=== PATIENT | female | born 1940 | race Caucasian/White ===

== ENCOUNTER 2016-09-15 01:30 | Emergency (ER) | payer OTHER, MEDICARE ==
--- NOTE | 2016-09-15 01:59 | RADIOLOGY REPORT (SQ) ---
EXAM DESCRIPTION: CHEST SINGLE VIEW COMPLETED DATE/TIME: 09/15/2016 1:42 am REASON FOR STUDY: STROKE LIKE SX COMPARISON: None. EXAM PARAMETERS: NUMBER OF VIEWS: One view. TECHNIQUE: Single frontal radiographic view of the chest acquired. RADIATION DOSE: NA LIMITATIONS: None. FINDINGS: LUNGS AND PLEURA: No opacities, masses or pneumothorax. No pleural effusion. MEDIASTINUM AND HILAR STRUCTURES: No masses. Contour normal. HEART AND VASCULAR STRUCTURES: Heart normal in size. Atherosclerosis. BONES: No acute findings. HARDWARE: Right upper abdominal clips. OTHER: No other significant finding. IMPRESSION: NO ACUTE RADIOGRAPHIC FINDING IN THE CHEST. TECHNICAL DOCUMENTATION: JOB ID: [id number]
[2016-09-15 02:05] LABS: PARTIAL THROMBOPLASTIN TIME 30.2 SEC (23.5-35.8); PROTHROMBIN TIME 14.2 SEC (11.4-15.4)
[2016-09-15 02:06] LABS: ABSOLUTE BASOPHILS # (AUTO) 0.1 10^3/uL (0.0-0.2); ABSOLUTE EOSINOPHILS # (AUTO) 0.1 10^3/uL (0.0-0.6); ABSOLUTE LYMPHOCYTES (AUTO) 1.2 10^3/uL (0.5-4.7); ABSOLUTE MONOCYTES (AUTO) 0.3 10^3/uL (0.1-1.4); ABSOLUTE NEUT (AUTO) 4.6 10^3/uL (1.7-8.2); BASOPHILS % (AUTO) 1.1 % (0-2); EOSINOPHILS % (AUTO) 2.3 % (0-6); HEMOGLOBIN 10.4 g/dL (12.0-15.5); HGB HCT DIFFERENCE 1.2; LYMPHOCYTES % (AUTO) 18.7 % (13-45); MEAN CORPUSCULAR HEMOGLOBIN 37.6 pg (27.0-33.4); MEAN CORPUSCULAR HGB CONC 34.6 g/dL (32.0-36.0); MEAN CORPUSCULAR VOLUME 109 fl (80-97); MONOCYTES % (AUTO) 5.5 % (3-13); RED BLOOD COUNT 2.76 10^6/uL (3.72-5.28); RED CELL DISTRIBUTION WIDTH 17.5 % (11.5-14.0); SEGMENTED NEUTROPHILS % (AUTO) 72.4 % (42-78); WHITE BLOOD COUNT 6.4 10^3/uL (4.0-10.5)
--- NOTE | 2016-09-15 02:09 | RADIOLOGY REPORT (SQ) ---
EXAM DESCRIPTION: CT HEAD WITHOUT COMPLETED DATE/TIME: 09/15/2016 1:43 am REASON FOR STUDY: UNILATERAL WEAKNESS COMPARISON: None. TECHNIQUE: Axial images acquired through the brain without intravenous contrast. Images reviewed wi th bone, brain and subdural windows. Images stored on PACS. All CT scanners at this facility use dose modulation, iterative reconstruction, and/or weight based d osing when appropriate to reduce radiation dose to as low as reasonably achievable (ALARA). [facility]: Dose Right [facility]: CareDose [facility]: Dose Right [facility]: Teradose 4D [facility]: [employer] RADIATION DOSE: 1163 LIMITATIONS: None. FINDINGS: VENTRICLES: Normal size and contour. CEREBRUM: Mild -moderate diminished white matter attenuation in bihemispheric white matter, especiall y of the right anterior and mid parietal white matter and focal encephalomalacia of the left precentr al gyrus, image 24, series 2. CEREBELLUM: No masses. No hemorrhage. No alteration of density. No evidence for acute infarction. EXTRAAXIAL SPACES: No fluid collections. No masses. ORBITS AND GLOBE: No intra- or extraconal masses. Normal contour of globe without masses. CALVARIUM: No fracture. PARANASAL SINUSES: No fluid or mucosal thickening. SOFT TISSUES: No mass or hematoma. OTHER: No other significant finding. IMPRESSION: Tjvd-yr-[id number] white matter microangiopathy pattern. Focal encephalomalacia of the le ft precentral gyrus. If acute ischemia is suspected, consider CT/ MR surveillance within 48-72 hours . COMMENT: Discussed with JAIME REBOLLEDO DO at01:52 on 09/15/2016. TECHNICAL DOCUMENTATION: JOB ID: [id number] Quality ID # [id number]: Final reports with documentation of one or more dose reduction techniques (e.g., Au tomated exposure control, adjustment of the mA and/or kV according to patient size, use of iterative reconstruction technique) 2010 [employer]- All Rights Reserved
--- NOTE | 2016-09-15 02:10 | ER Document Report ---
ED General - General Chief Complaint: S/S of Possible Stroke Stated Complaint: STROKE LIKE SYMPTOMS Time Seen by Provider: 09/15/16 01:37 Past Medical History - Social History Smoking Status: Current Every Day Smoker Frequency of alcohol use: None Drug Abuse: None Family History: Reviewed & Not Pertinent Physical Exam - Vital signs Vitals: Pulse Ox 85 L 09/15/16 01:34 Course - Re-evaluation Re-evalutation: 09/15/16 02:07 Patient's family is at bedside. Patient is obviously confused. She does not always answer questions appropriately. When I asked her to perform certain tasks she just says okay but then does not perform the tasks. It is therefore difficult for me to determine if there is a little bit weakness on one side versus the other. She is actively moving around in the bed and actively moving all 4 extremities on her own without any significant difficulty. She does seem to close her right fist a little bit left in her left fist which is what the family noticed earlier however again she will not follow my commands to determine if this is actually because she cannot close fingers or hand or face for another reason. Patient otherwise is actively moving her right upper extremity normally. At this time I cannot be convinced that this is a stroke or not. Patient did just go through an emotional event with the of her son. I do not know if this is contributing to what is going on now. I did talk to the family about TPA and about the risks and benefits of TPA. I informed them of the cyst to 6 behind the potential treatment with TPA given within 3 hours and also informed him of the risk of intracranial bleeding with menstruation. Currently the [id number] and other family members are in the room. They currently agree and do not want TPA; however, they also do not feel comfortable making this decision purely on their own as they want to try to get in touch with the patient's son who would be her next of kin. They are attempting to call the son so that I can speak with them. 09/15/16 02:20 I did talk to the patient's son and fhgqeclt-[id number] who are in [place]. I informed him of what is going on in my exam findings. Also informed him that I cannot tell if this is more of an emotional breakdown on actual stroke that is causing her confusion. I informed him that is hard to get a good physical exam on her being that she does not quite follow my commands appropriately. They are understanding of this. I did talk to him about TPA. I did go over this to cystic some TPA as far as six-month outcome and also in regards to risk of bleeding if the medication is given. I informed him being that is not 100% clear that the stroke that my recommendation would be to not give the medication : however, ultimately the decision as there is. They agree and do not want medication given at this time. They did ask again why we cannot get an MRI here. I informed him that we do not have MRI capability at night as we do not have MRI techs contract accountant at night. They asked me if we will be able to transfer the patient to another facility within the 3 hour window to get an MRI performed. I informed him that currently we actually have several patients in the ER already waiting transfers and there is no transport available and therefore the patient will be a welts of the window before we could even get transport here. We are already past 1.5 hours since the onset of symptoms; therefore, Even if we did have an immediate truck available the closest facility with MRI capability is an hour away and therefore the patient would probably not make it to the actual facility that had an MRI until the actual three-hour abraham and by the time MRI would be performed and resulted she would be outside the window for any type of thrombolytic therapy. They are understanding of this. I personally feel that giving thrombolytics his right decision in that the patient's symptoms are not clear-cut of that of a stroke as she does not have any obvious tremor any weakness and this seems to be very much for confusion which could just as easily represent emotional stress from loss was son as could represent a stroke as well. 09/15/16 02:25 09/15/16 03:05 On reevaluation patient's neuro exam remains the same. She is still moving all 4 extremities. She still has about the same level of confusion. Patient's initial troponin did come back elevated. Patient does have history of coronary disease but she also has renal insufficiency. Unclear if this is related to possible recent MRI. We will do a repeat troponin at 3:45 to determine if her troponin is increasing or not. Potassium is low. We will also give her some potassium. I will check a magnesium level. 09/15/16 04:31 Her repeat troponin is steady. It is not increasing. I did call her hospitalist and discussed the case with him. I spoke with Dr. Hamilton. He does not feel comfortable keeping her being that she has a left bundle branch block and we do not know if it is old or not. Family does not know if it is an old. We have no comparison being that she is out of town. He requested transfer the patient. I did speak with family who is agreeable to me trying [facility]. I am awaiting to hear back from the hospitalist at [facility]. 09/15/16 04:[address] Hugo Phillips, hospitalist at [facility], who agrees to accept the patient for transfer. At this time I will withhold giving her Lovenox being that her troponin is not increasing and has remained steady. I suspect that this is less likely related to a new cardiac infarction and being that there is a possibility the patient may have recently had a stroke I would rather not do more anticoagulation than aspirin. Neurologically the patient has remained unchanged. She still shows no signs of weakness and of any of her extremities on my exam. The right-sided weakness at the family initially visualized is not evident at this time. Still has confusion. Patient will be closely monitored until transfer. I did tell the family member of the acceptance to [facility] and that she will most likely be transferred after morning time. Family is appreciative and has no further questions at this time. 09/15/16 04:44 - Vital Signs Vital signs: Temp Pulse Resp BP Pulse Ox 71 21 H 105/63 100 09/15/16 03:00 09/15/16 03:02 09/15/16 03:02 09/15/16 03:02 - Laboratory Result Diagrams: 09/15/16 01:45 09/15/16 01:45 Laboratory results interpreted by me: 09/15/16 09/15/16 09/15/16 01:45 01:45 01:45 RBC 2.76 L Hgb 10.4 L Hct 30.0 L MCV 109 H MCH 37.6 H RDW 17.5 H Plt Count 107 L Potassium 3.0 L* Chloride 116 H Carbon Dioxide 11 L BUN 33 H Creatinine 2.53 H Est GFR ( Amer) 22 L Est GFR (Non-Af Amer) 18 L Glucose 116 H Calcium 7.6 L Magnesium CK-MB (CK-2) 6.08 H Total Protein 6.2 L 09/15/16 01:45 RBC Hgb Hct MCV MCH RDW Plt Count Potassium Chloride Carbon Dioxide BUN Creatinine Est GFR ( Amer) Est GFR (Non-Af Amer) Glucose Calcium Magnesium 1.5 L CK-MB (CK-2) Total Protein - EKG Interpretation by Me Additional EKG results interpreted by me: 09/15/16 02:06 EKG is reviewed and interpreted by me. EKG shows normal sinus rhythm with a rate of 79 bpm. Patient does have a left bundle branch block. No unexpected ST segment changes in combination with a left bundle branch block. Occasional PVC. VA interval is within normal range. QRS duration and QTc intervals are along. No old EKG available for comparison. Discharge - Discharge Clinical Impression: Elevated troponin, Hypokalemia, Hypomagnesemia Altered mental status Qualifiers: Altered mental status type: unspecified Qualified Code(s): R41.82 - Altered mental status, unspecified Condition: Stable Disposition: [facility]
[2016-09-15 02:17] LABS: ALANINE AMINOTRANSFERASE 21 U/L (9-52); ALBUMIN 3.9 g/dL (3.5-5.0); ALKALINE PHOSPHATASE 91 U/L (38-126); ANION GAP 18 (5-19); ASPARTATE AMINO TRANSFERASE 16 U/L (14-36); BILIRUBIN,DIRECT 0.4 mg/dL (0.0-0.4); BILIRUBIN,TOTAL 0.7 mg/dL (0.2-1.3); BLOOD UREA NITROGEN 33 mg/dL (7-20); CALCIUM 7.6 mg/dL (8.4-10.2); CARBON DIOXIDE 11 mmol/L (22-30); CHLORIDE 116 mmol/L (98-107); CREATINE KINASE 55 U/L (30-135); CREATININE RESULT 2.53 mg/dL (0.52-1.25); GLUCOSE 116 mg/dL (75-110); SODIUM 144.6 mmol/L (137-145); TOTAL PROTEIN 6.2 g/dL (6.3-8.2)
[2016-09-15 02:33] LABS: CREATINE KINASE MB 6.08 ng/mL (<4.55)
[2016-09-15 02:37] LABS: TROPONIN I 0.319 ng/mL
[2016-09-15] MEDS ORDERED: ASPIRIN 325 MG TABLET PO ONE (03:05)
[2016-09-15] MEDS ORDERED: POTASSIUM CHLORIDE 10 MEQ TABLET.SA PO ONE (03:06)
[2016-09-15] MEDS ORDERED: MAGNESIUM SULFATE/D5W 100 ML IV ONE (03:59)
--- NOTE | 2016-09-15 07:40 | ER Document Report ---
Doctor's Note Notes: 09/15/16 07:40 Transport is here for the patient. She is alert and oriented moving all extremities and vital signs are stable.
[2016-09-15 07:48] VITALS: BP 106/58
--- NOTE | 2016-09-15 08:13 | EKG REPORT ---
SEVERITY:- ABNORMAL ECG - SINUS RHYTHM MULTIPLE VENTRICULAR PREMATURE COMPLEXES LEFT BUNDLE BRANCH BLOCK : Confirmed by: Dileep Bauman MD 15-Sep-2016 08:12:20
[2016-09-15] MEDS ORDERED: ALLOPURINOL 100 MG TABLET PO SCH (10:00)
[2016-09-15] MEDS ORDERED: DIGOXIN 0.125 MG TABLET PO SCH (10:00)
[2016-09-15] MEDS ORDERED: ISOSORBIDE MONONITRATE 30 MG TAB.ER.24H PO SCH (10:00)
[2016-09-15] MEDS ORDERED: AZATHIOPRINE 50 MG TABLET PO SCH (10:00)
== END 2016-09-15 08:02 | disposition short-term general hospital (02) ==
LOC: ER 01:30 → EDBD 01:30 → ER 08:02
DX: E87.6 Hypokalemia (principal); E83.42 Hypomagnesemia; R41.82 Altered mental status, unspecified; R53.1 Weakness; F17.200 Nicotine dependence, unspecified, uncomplicated
CPT/HCPCS: 93005; 99285; 96365; 36415; 82553; 82550; 80162; 83735; 85025; 85610; 85730; 80053; 84484; 71010; 70450; 93010; J3475